=== PATIENT | female | born 1950 ===

== ENCOUNTER 2018-06-10 19:10 | Emergency (ER) | payer OTHER ==
[2018-06-10 19:32] VITALS: O2SAT 99
[2018-06-10 21:00] LABS: BASO # 0.1 K/uL (0.0-0.2); EOS # 0.2 K/uL (0.0-0.7); EOS % 2.9 % (0.0-4.0); HEMOGLOBIN 12.4 g/dL (12.0-16.0); LYMPH # 2.2 K/uL (1.0-4.3); MEAN CELL VOLUME 84.7 fl (81.0-99.0); MEAN CORPUSCULAR HEMOGLOBIN 27.6 pg (27.0-31.0); MEAN CORPUSCULAR HGB CONC 32.6 g/dL (33.0-37.0); MONO # 0.5 K/uL (0.0-0.8); MONO % 6.7 % (0.0-10.0); NEUT % 62.4 % (50.0-75.0); RBC 4.49 Mil/uL (3.80-5.20); RED CELL DISTRIBUTION WIDTH 13.7 % (11.5-14.5)
[2018-06-10 21:06] LABS: PROTHROMBIN TIME 11.6 Seconds (9.8-13.1)
[2018-06-10 21:09] LABS: PARTIAL THROMBOPLASTIN TIME 28.2 Seconds (25.6-37.1)
[2018-06-10 21:16] LABS: ALB/GLOB RATIO 1.1 (1.0-2.1); ALBUMIN 4.6 g/dL (3.5-5.0); ALT/SGPT 30 U/L (9-52); AST/SGOT 34 U/L (14-36); BLOOD UREA NITROGEN 21 mg/dl (7-17); CALCIUM 9.8 mg/dL (8.4-10.2); GFR NON-AFRICAN AMERICAN > 60
[2018-06-10 21:34] VITALS: RESP 18
--- NOTE | 2018-06-10 22:40 | ED PDOC ---
Lower Extremity Pain/Injury Time Seen by Provider: 06/10/18 20:00 Chief Complaint (Nursing): Lower Extremity Problem/Injury Chief Complaint (Provider): Lower Extremity Problem/Injury History Per: Patient History/Exam Limitations: no limitations Onset/Duration Of Symptoms: Hrs (x 5) Current Symptoms Are (Timing): Still Present Additional Complaint(s): 68 year old female with a medical history of DM, dyslipidemia and HTN presents to the ED for evaluation of left foot injury that occurred six hours ago. Patient reports a loose sliding shower door fell on her foot prior to arrival. She developed swelling and tenderness to the 2nd, 3rd and 4th digits and reports increased pain with movement. Patient is able to ambulate. Of note, she has remarkably elevated blood pressure and admits she has not taken her hypertension medications. Patient also has not taken medications for pain. Offers no other complaints. PMD: Dr. Perez Past Medical History Reviewed: Historical Data, Nursing Documentation, Vital Signs Vital Signs: Last Vital Signs Temp 99.2 F 06/10/18 19:29 Pulse 92 H 06/10/18 21:33 Resp 18 06/10/18 21:33 BP 182/106 H 06/10/18 22:29 Pulse Ox 99 06/10/18 21:33 - Medical History PMH: Diabetes (type II), Gastritis, HTN, Hypercholesterolemia - Surgical History Surgical History: Appendectomy, Cholecystectomy - Family History Family History: States: Unknown Family Hx - Immunization History Hx Tetanus Toxoid Vaccination: No Hx Influenza Vaccination: No Hx Pneumococcal Vaccination: No - Home Medications Home Medications: Ambulatory Orders Medication Instructions Recorded Losartan/Hydrochlorothiazide 1 tab PO DAILY 03/16/16 [Losartan-Hctz 50-12.5 mg Tab] Metformin HCl [Glucophage] 1,000 mg PO BID 03/16/16 Metoprolol Succinate XL [Toprol XL] 50 mg PO DAILY 03/16/16 Pantoprazole Sodium [Protonix] 40 mg PO DAILY 03/16/16 Simvastatin [Zocor] 20 mg PO DAILY 03/16/16 Docusate [Colace] 100 mg PO BID #30 cap 03/19/16 Lactobacillus Acidophilus [Bacid 1 cap PO DAILY #15 cap 03/20/16 Acidophilus] oxyCODONE/Acetaminophen [Percocet 1 tab PO Q4 PRN #20 tab 04/11/16 5/325 mg Tab] - Allergies Allergies/Adverse Reactions: Allergies Allergy/AdvReac Type Severity Reaction Status Date / Time cerna Allergy Mild RASH Verified 04/09/16 17:30 peach Allergy Mild RASH Verified 04/09/16 17:30 Review of Systems ROS Statement: Except As Marked, All Systems Reviewed And Found Negative Musculoskeletal: Positive for: Foot Pain (left) Physical Exam - Reviewed Nursing Documentation Reviewed: Yes Vital Signs Reviewed: Yes - Physical Exam Appears: Positive for: No Acute Distress Head Exam: Positive for: ATRAUMATIC, NORMAL INSPECTION, NORMOCEPHALIC Skin: Positive for: Normal Color, Warm, Dry Eye Exam: Positive for: EOMI, Normal appearance, PERRL Neck: Positive for: Normal, Painless ROM, Supple Cardiovascular/Chest: Positive for: Regular Rate, Rhythm. Negative for: Murmur Respiratory: Positive for: Normal Breath Sounds. Negative for: Respiratory Distress Gastrointestinal/Abdominal: Positive for: Normal Exam, Soft. Negative for: Tenderness Extremity: Positive for: Tenderness (mild tenderness and superificial abrasion to 2nd, 3rd and 4th metatarsals; tenderness to toes), Capillary Refill (< 2 seconds), Other (hammertoes). Negative for: Calf Tenderness, Swelling Neurological/Psych: Positive for: Awake, Alert, Normal Tone, Oriented. Negative for: Motor/Sensory Deficits - Laboratory Results Result Diagrams: 06/10/18 20:10 06/10/18 20:10 Lab Results: PT 11.6 Seconds (9.8-13.1) 06/10/18 20:10 INR 1.0 06/10/18 20:10 APTT 28.2 Seconds (25.6-37.1) 06/10/18 20:10 Total Bilirubin 0.5 mg/dl (0.2-1.3) 06/10/18 20:10 AST 34 U/L (14-36) 06/10/18 20:10 ALT 30 U/L (9-52) 06/10/18 20:10 Alkaline Phosphatase 70 U/L (38-126) 06/10/18 20:10 Total Protein 8.6 G/DL (6.3-8.2) H 06/10/18 20:10 Albumin 4.6 g/dL (3.5-5.0) 06/10/18 20:10 Globulin 4.0 gm/dL (2.2-3.9) H 06/10/18 20:10 Albumin/Globulin Ratio 1.1 (1.0-2.1) 06/10/18 20:10 - ECG O2 Sat by Pulse Oximetry: 99 (RA) Pulse Ox Interpretation: Normal Medical Decision Making Medical Decision Makin:13 Impression: left foot injury and elevated blood pressure in setting of uncontrolled HTN Initial Plan: --CMP --CBC --Urine dip --PTT --PT --Lopressor 50 mg PO --Losartan 50 mg PO --Toradol 10 mg IM --Left foot x-ray 23:10 x-ray reviewed. Discussed findings with Dr. Avery, podiatry resident. Given clinical presentation and findings, Dr. Avery recommends patient to follow up with podiatry clinic. Diagnoses of hammertoes, toe contusion and uncontrolled HTN. Significant improvement in blood pressure noted. Provider insisted on need for compliance with hyperextension medications. Scribe Attestation: Documented by Yoselin Person, acting as a scribe for Howard Lal MD. Provider Scribe Attestation: All medical record entries made by the Scribe were at my direction and personally dictated by me. I have reviewed the chart and agree that the record accurately reflects my personal performance of the history, physical exam, medical decision making, and the department course for this patient. I have also personally directed, reviewed, and agree with the discharge instructions and disposition. Disposition - Clinical Impression Clinical Impression: Hammer toe of left foot, Hypertension - Patient ED Disposition Is Patient to be Admitted: No - Disposition Referrals: Podiatry Clinic [Outside] Disposition Time: 23:10 Condition: FAIR Instructions: Hammer Toe, High Blood Pressure (DC), Contusion (DC) Forms: [employer] (Belarusian) Print Language: ARMENIAN
[2018-06-10 23:12] VITALS: BP 155/88; PULSE 98; TEMP 97.9
--- NOTE | 2018-06-11 09:05 | RAD ---
Date of service: 06/10/2018 PROCEDURE: Left Foot Radiographs. HISTORY: pain COMPARISON: 12/08/2012 FINDINGS: BONES: Hammertoe orientations noted. No fracture seen. Smooth periosteal reaction lines the 2nd 3rd and 4th metatarsals similar-appearing. Interval progressive peroneal brevis tendinous calcification/ossification bordering the 5th metatarsal base is noted. Inferior calcaneal spurring. Waqar's tendon insetional enesthesophyte. Medial sesamoid relative sclerosis compared to the lateral sesamoid a-similar appearing with 2012. 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 Corresponding to trauma site per history OTHER FINDINGS: None. IMPRESSION: No acute fracture seen. No dislocation. Soft tissue swelling over phalanges. Other findings as above.
== END 2018-06-10 23:11 | disposition home or self-care (01) ==
LOC: H.ER 19:10
DX: M20.42 Other hammer toe(s) (acquired), left foot (principal); I10 Essential (primary) hypertension; E11.9 Type 2 diabetes mellitus without complications; E78.00 Pure hypercholesterolemia, unspecified
CPT/HCPCS: 73630; 80053; 85025; 85610; 85730; 96374; 99284; J1885